=== PATIENT | male | born 1975 | race Caucasian/White ===

== ENCOUNTER 2018-06-22 20:34 | Emergency (ER) | payer BC ==
[2018-06-22 21:02] LABS: BASOPHILS # (AUTO) 0.1 10^3/uL (0.0-0.1); BASOPHILS % (AUTO) 1.1 %; EOSINOPHILS # (AUTO) 0.3 10^3/uL (0.0-0.7); EOSINOPHILS % (AUTO) 4.3 %; HGB - HEMOGLOBIN 16.3 g/dL (14.0-18.0); LYMPHOCYTES # (AUTO) 2.4 10^3/uL (1.5-3.5); LYMPHOCYTES % (AUTO) 30.3 %; MEAN CORPUSCULAR HEMOGLOBIN 31.9 pg (27.0-31.0); MEAN CORPUSCULAR HGB CONC 34.1 g/dL (32.0-36.0); MEAN CORPUSCULAR VOLUME 93.5 fL (80.0-94.0); MEAN PLATELET VOLUME 7.1 fL (7.4-11.4); MONOCYTES # (AUTO) 0.7 10^3/uL (0.0-1.0); MONOCYTES % (AUTO) 9.1 %; NEUTROPHILS # (AUTO) 4.3 10^3/uL (1.5-6.6); NEUTROPHILS % (AUTO) 55.2 %; PLT - PLATELET COUNT 365 10^3/uL (130-450); RED BLOOD COUNT 5.12 10^6/uL (4.70-6.10); RED CELL DISTRIBUTION WIDTH 12.3 % (12.0-15.0); WHITE BLOOD COUNT 7.9 x10^3/uL (4.8-10.8)
[2018-06-22 21:16] LABS: ALBUMIN 4.7 g/dL (3.2-5.5); ALBUMIN/GLOBULIN RATIO 1.5 (1.0-2.2); BILIRUBIN,TOTAL 0.7 mg/dL (0.2-1.0); CALCIUM 9.2 mg/dL (8.5-10.3); CREATININE 1.2 mg/dL (0.6-1.2); TOTAL PROTEIN 7.8 g/dL (6.7-8.2)
--- NOTE | 2018-06-22 21:54 | XRAY Report ---
Procedure Date: 06/22/2018 Accession Number: [id number] / [id number] Procedure: XR - Chest 2 View X-Ray CPT Code: 44735 FULL RESULT: EXAM: CHEST RADIOGRAPHY. EXAM DATE: 06/22/2018 09:19 PM. CLINICAL HISTORY: Sudden onset of chest pain. COMPARISON: 03/11/2016. TECHNIQUE: 2 views. FINDINGS: Lungs/Pleura: Persistent elevated left hemidiaphragm with plate-like densities at the left lung base. No large effusions or pneumothorax. Right lung is relatively clear. Mediastinum: Stable mediastinum. Other: None. IMPRESSION: 1. Persistent elevated left hemidiaphragm. Left lower lobe opacities likely represent atelectasis. 2. No effusions or pneumothorax. RADIA
[2018-06-22] MEDS ORDERED: MORPHINE 2 MG/ML SYRINGE IVP STA (22:01)
[2018-06-23 00:07] LABS: TROPONIN I < 0.04 ng/mL (<0.49)
[2018-06-23 00:09] LABS: CREATINE KINASE MB 0.9 ng/mL (0.6-6.3)
[2018-06-23 01:38] VITALS: BP 120/93
--- NOTE | 2018-06-23 22:57 | ED Physician Documentation ---
PD HPI CHEST PAIN - Stated complaint Stated Complaint: CHEST PAIN - Chief complaint Chief Complaint: Cardiac - History obtained from History obtained from: Patient - History of Present Illness Timing - onset: Enter time (18:30), Today Timing - onset during: Other (while driving home from work) Timing - details: Abrupt onset, Waxing and waning Pain level max: 8 Pain level now: 6 Quality: Pain Location: Substernal, Left chest Radiation: Left upper extremity Improved by: Nothing Worsened by: Other (no exacerbating factors) Associated symptoms: Diaphoresis. No: Shortness of air, Nausea, Vomiting Recently seen: Admitted - Additional information Additional information: recent inpatient at for chest pain, w/u included CT chest and nuc. ST with nondiagnostic results. he has followed up with cardiology, Dr. Aguiar. per patient, he is likely to undergo cardiac cath pending results of holter monitor (which he is wearing at this time). this afternoon, while driving home from work, he had chest pain radiating to LUE. took SLNTG x 2 but had ongoing symptoms. he called his but cannot recall most of the conversation. his , present st bedside in ED, says patient was asking odd questions and seemed confused[place] was then driven to ER by a friend. Review of Systems Constitutional: reports: Reviewed and negative Cardiac: reports: Chest pain / pressure. denies: Palpitations, Pedal edema Respiratory: reports: Reviewed and negative GI: reports: Reviewed and negative Neurologic: reports: Reviewed and negative PD PAST MEDICAL HISTORY - Past Medical History Past Medical History: Yes Cardiovascular: Other Other Past Medical History: V-tach - Past Surgical History Past Surgical History: Yes Ortho: Arthroscopic surgery - Present Medications Home Medications: Ambulatory Orders Medication Instructions Recorded Confirmed Aspirin [Aspirin EC] 81 mg PO DAILY 06/22/18 06/22/18 Losartan [Cozaar] 50 mg PO DAILY 06/22/18 06/22/18 Metoprolol Tartrate 50 mg PO BID 06/22/18 06/22/18 - Allergies Allergies/Adverse Reactions: Allergies Allergy/AdvReac Type Severity Reaction Status Date / Time benzonatate Allergy Anaphylaxis Verified 06/22/18 20:53 [From Luanne Landa] - Social History Does the pt smoke?: No Smoking Status: Never smoker Does the pt drink ETOH?: No Does the pt have substance abuse?: No - Immunizations Immunizations are current?: Yes PD ED PE NORMAL - Vitals Vital signs reviewed: Yes - General General: Alert and oriented X 3, No acute distress, Well developed/nourished - Cardiac Cardiac: RRR, No murmur, No gallop, No rub - Respiratory Respiratory: No respiratory distress, Clear bilaterally - Abdomen Abdomen: Soft, Non tender - Derm Derm: Normal color, Warm and dry - Extremities Extremities: No edema Results - Vitals Vitals: Vital Signs - 24 hr 06/22/18 06/23/18 06/23/18 23:30 00:00 00:42 Heart Rate 88 88 85 Respiratory 18 18 15 Rate Blood Pressure 118/86 H 103/85 H 124/88 H O2 Saturation 96 96 94 06/23/18 01:37 Heart Rate 88 Respiratory 18 Rate Blood Pressure 120/93 H O2 Saturation 96 Oxygen O2 Source Room air - EKG (time done) No standard instances Rate: Rate (enter#) (106), Tachy Rhythm: Sinus tachycardia [place]: Normal Intervals: Normal [place] QRS: Normal Ischemia: Normal ST segments - Labs Labs: Laboratory Tests 06/22/18 06/22/18 06/22/18 20:52 20:52 20:52 WBC 7.9 RBC 5.12 Hgb 16.3 Hct 47.9 MCV 93.5 MCH 31.9 H MCHC 34.1 RDW 12.3 Plt Count 365 MPV 7.1 L Neut # (Auto) 4.3 Lymph # (Auto) 2.4 [place] # (Auto) 0.7 Eos # (Auto) 0.3 Baso # (Auto) 0.1 Absolute Nucleated RBC 0.01 Nucleated RBC % 0.1 D-Dimer Sodium 138 Potassium 3.6 Chloride 105 Carbon Dioxide 23 Anion Gap 10.0 BUN 15 Creatinine 1.2 Estimated GFR (MDRD) 66 L Glucose 89 Calcium 9.2 Total Bilirubin 0.7 AST 31 ALT 43 Alkaline Phosphatase 102 Total Creatine Kinase CK-MB (CK-2) Troponin I < 0.04 Total Protein 7.8 Albumin 4.7 Globulin 3.1 Albumin/Globulin Ratio 1.5 Lipase 22 06/22/18 06/22/18 06/22/18 20:52 23:40 23:40 WBC RBC Hgb Hct MCV MCH MCHC RDW Plt Count MPV Neut # (Auto) Lymph # (Auto) [place] # (Auto) Eos # (Auto) Baso # (Auto) Absolute Nucleated RBC Nucleated RBC % D-Dimer < 200.0 L Sodium Potassium Chloride Carbon Dioxide Anion Gap BUN Creatinine Estimated GFR (MDRD) Glucose Calcium Total Bilirubin AST ALT Alkaline Phosphatase Total Creatine Kinase 73 CK-MB (CK-2) 0.9 Troponin I < 0.04 Total Protein Albumin Globulin Albumin/Globulin Ratio Lipase - Rads (name of study) chest xray Radiology: Prelim report reviewed, See rad report PD MEDICAL DECISION MAKING - ED course Complexity details: reviewed results, re-evaluated patient, considered differential, d/w patient ED course: D/W Dr. Aguiar, recommends 2nd troponin (at time of our conversation, which was a two-hour repeat from first result), and can d/c home if second result is normal, blood pressure is adequately controlled, and pain resolves. All three of these parameters were met when I reevaluated him after second tni resulted. - Sepsis Event Vital Signs: Vital Signs - 24 hr 06/22/18 06/23/18 06/23/18 23:30 00:00 00:42 Heart Rate 88 88 85 Respiratory 18 18 15 Rate Blood Pressure 118/86 H 103/85 H 124/88 H O2 Saturation 96 96 94 06/23/18 01:37 Heart Rate 88 Respiratory 18 Rate Blood Pressure 120/93 H O2 Saturation 96 Oxygen O2 Source Room air Departure - Departure Disposition: 01 Home, Self Care Clinical Impression: Chest pain Qualifiers: Chest pain type: unspecified Qualified Code(s): R07.9 - Chest pain, unspecified Condition: Good Instructions: ED Chest Pain Atypical Unkn Cause Follow-Up: Safia Aguiar MD [Provider Admit Priv/Credential] - Discharge Date/Time: 06/23/18 01:38
== END 2018-06-23 01:38 | disposition home or self-care (01) ==
LOC: ED 20:34
DX: R07.9 Chest pain, unspecified (principal)
CPT/HCPCS: 36415; 71046; 80053; 82550; 82553; 83690; 84484; 85025; 85379; 93005; 96374; 99283; 99284; J2270

== ENCOUNTER 2018-12-27 11:17 | Outpatient (CLI) | payer BC ==
--- NOTE | 2018-12-27 12:52 | XRAY Report ---
Reason: URI Procedure Date: 12/27/2018 Accession Number: [id number] / [id number] Procedure: XRN - Chest 2 View X-Ray CPT Code: 33729 FULL RESULT: EXAM: CHEST RADIOGRAPHY EXAM DATE: 12/27/2018 11:45 AM. CLINICAL HISTORY: URI. COMPARISON: CHEST 2 VIEW 06/22/2018 9:09 PM. TECHNIQUE: 2 views. FINDINGS: There is redemonstration of elevation of the left hemidiaphragm with a similar appearance to the previous study. There is no focal infiltrate, pleural effusion or pneumothorax seen. There is been interval decrease in the previously demonstrated left lower lobe atelectasis. The heart is not enlarged. IMPRESSION: Redemonstration of elevation of the left hemidiaphragm with interval decreased in the left lower lobe atelectasis. RADIA
== END 2018-12-27 11:18 | disposition home or self-care (01) ==
LOC: DI.N 11:17
PROVIDERS: ATTEND Nurse Practitioner
DX: J06.9 Acute upper respiratory infection, unspecified (principal); R05 Cough; Q07.00 Arnold-Chiari syndrome without spina bifida or hydrocephalus
CPT/HCPCS: 71046